=== PATIENT | female | born 1950 | race Asian ===

== ENCOUNTER 2019-12-31 11:46 | Observation (INO) | payer MEDICARE, BC ==
[~2019-12-31] VITALS: Ht 162.6 cm; Wt 60.7 kg
[~2019-12-31 11:46] MED LIST: ASCO500C2 PO; ATOR40TA PO; B CO1TAB14 PO; BIOTIN PO; CYAN100T22 PO; DIGO250T3 PO; MELA1TAB8 PO; METO25TA91 PO; MULT-155 PO; MULT-717 PO; WARF2.5T32 PO; [UNRECOGNIZED DRUG - OTHER] PO
[2019-12-31] MEDS ORDERED: SODIUM CHLORIDE 0.9% 1,000 ML IV SCH (13:00)
[2019-12-31 13:18] VITALS: BP 117/77
[2019-12-31] MEDS ORDERED: CALCIO DEL MAR PO (13:29)
[2019-12-31] MEDS ORDERED: MULT-717 PO (13:29)
[2019-12-31] MEDS ORDERED: LACT1CAP20 PO (13:29)
[2019-12-31] MEDS ORDERED: OMEP-110 PO (13:29)
[2019-12-31] MEDS ORDERED: PLEASE ENTER HEIGHT AND WEIGHT MC SCH (13:30)
[2019-12-31] MEDS ORDERED: Spironolactone PO (13:34)
[2019-12-31] MEDS ORDERED: ACET325T26 PO (13:38)
[2019-12-31 13:57] LABS: INTERNATIONAL NORMALIZED RATIO 3.06 (0.93-1.1); PROTHROMBIN TIME 31.9 Seconds (9.6-11.5)
[2019-12-31 14:00] LABS: ANION GAP 7 mmol/L (5-15); CALCIUM 9.7 mg/dL (8.5-10.1); CHLORIDE 108 mmol/L (98-107)
[2019-12-31 14:02] LABS: CREATININE 1.21 mg/dL (0.55-1.02)
[2019-12-31 14:19] LABS: MD NO
[2019-12-31 14:22] LABS: BASOPHILS # (AUTO) 0.09 x10^3/uL (0-0.1); BASOPHILS % (AUTO) 1 % (0-1); EOSINOPHILS # (AUTO) 0.03 x10^3/uL (0-0.4); EOSINOPHILS % (AUTO) 0 % (1-7); LYMPHOCYTES # (AUTO) 0.85 x10^3/uL (1-3.4); LYMPHOCYTES % (AUTO) 14 % (22-44); MEAN CORPUSCULAR HEMOGLOBIN 30.3 pg (27.0-34.8); MEAN CORPUSCULAR HGB CONC 32.2 g/dL (32.4-35.8); MEAN CORPUSCULAR VOLUME 94.2 fL (80-100); MEAN PLATELET VOLUME 11.9 fL (7.4-10.4); MONOCYTES # (AUTO) 0.38 x10^3/uL (0.2-0.8); MONOCYTES % (AUTO) 6 % (2-9); NEUTROPHILS # (AUTO) 4.61 x10^3/uL (1.8-6.8); NEUTROPHILS % (AUTO) 77 % (42-75); PLATELET COUNT 127 x10^3/uL (130-400); RED CELL DISTRIBUTION WIDTH 16.9 % (9.6-15.2)
[2019-12-31] MEDS ORDERED: LIDOCAINE 1%, 20ML ONE (14:26)
[2019-12-31] MEDS ORDERED: FENTANYL PF 100 MCG/2ML ONE (14:30)
[2019-12-31] MEDS ORDERED: MIDAZOLAM 1 MG/ML, 2ML ONE (14:30)
[2019-12-31] MEDS ORDERED: ACETAMINOPHEN 325 MG TABLET PO PRN (15:30)
[2019-12-31 19:43] VITALS: BP 119/80
[2020-01-01 00:03] VITALS: BP 134/79
[2020-01-01 07:27] VITALS: BP 123/86
[2020-01-01] MEDS ORDERED: WARFARIN 2.5 MG TABLET PO-COUM SCH (09:00)
[2020-01-01] MEDS ORDERED: OMEPRAZOLE 10 MG CAPSULE.DR PO SCH (09:00)
[2020-01-01 10:25] LABS: INTERNATIONAL NORMALIZED RATIO 3.31 (0.93-1.1); PROTHROMBIN TIME 34.5 Seconds (9.6-11.5)
== END 2020-01-01 11:30 | disposition home or self-care (01) ==
LOC: CACL 11:46 → 5SO 15:13 → CACL 17:00 → DCLOUNGE 01-01 11:23
PROVIDERS: ADMIT Internal Medicine Cardiovascular Disease; ATTEND Internal Medicine Cardiovascular Disease
DX: I48.20 Chronic atrial fibrillation, unspecified (principal); I44.2 Atrioventricular block, complete; E78.5 Hyperlipidemia, unspecified; Z87.891 Personal history of nicotine dependence; E78.00 Pure hypercholesterolemia, unspecified; Z95.0 Presence of cardiac pacemaker; Z95.2 Presence of prosthetic heart valve; Z79.899 Other long term (current) drug therapy; Z79.01 Long term (current) use of anticoagulants
CPT/HCPCS: 36415; 80048; 85025; 85610; 85730; 93650; 99156; 99157; C1766; C1894; C2630; G0378; J2250; J3010; J3490

== ENCOUNTER → 2020-01-21 | Outpatient (CLI) | payer MEDICARE, BC ==
[~2020-01-21] MED LIST changes: +ACET325T26 PO; +CALCIO DEL MAR PO; +FURO20TA3 PO; +LACT1CAP20 PO; +OMEP-110 PO; +POTA10TA6 PO; +Spironolactone PO
== END | disposition home or self-care (01) ==
LOC: STAR 09:05
PROVIDERS: ATTEND Anesthesiology
DX: Z01.812 Encounter for preprocedural laboratory examination (principal); Z20.828 Contact with and (suspected) exposure to other viral communicable diseases
CPT/HCPCS: 36415; 87635

== ENCOUNTER 2020-01-26 09:33 | Day surgery (SDC) | payer MEDICARE, BC ==
[~2020-01-26] VITALS: Ht 162.6 cm; Wt 56.8 kg
[~2020-01-26 09:33] MED LIST changes: -FURO20TA3 PO; -POTA10TA6 PO
[2020-01-26 10:27] VITALS: BP 105/73
[2020-01-26] MEDS ORDERED: SODIUM CHLORIDE 0.9% 1,000 ML IV SCH (10:30)
[2020-01-26] MEDS ORDERED: PLEASE ENTER HEIGHT AND WEIGHT MC SCH (10:30)
[2020-01-26] MEDS ORDERED: POTA10TA6 PO (10:35)
[2020-01-26] MEDS ORDERED: FURO20TA3 PO (10:35)
[2020-01-26] MEDS ORDERED: PROPOFOL 10 MG/ML, 20ML ONE (12:00)
== END 2020-01-26 13:45 | disposition home or self-care (01) ==
LOC: CACL 09:33
PROVIDERS: ATTEND Internal Medicine Cardiovascular Disease
DX: I05.2 Rheumatic mitral stenosis with insufficiency (principal); I48.91 Unspecified atrial fibrillation; I11.0 Hypertensive heart disease with heart failure; I50.33 Acute on chronic diastolic (congestive) heart failure; I07.1 Rheumatic tricuspid insufficiency; E78.00 Pure hypercholesterolemia, unspecified; I95.0 Idiopathic hypotension; Z88.3 Allergy status to other anti-infective agents; Z91.040 Latex allergy status; Z79.899 Other long term (current) drug therapy; Z91.048 Other nonmedicinal substance allergy status; Z72.89 Other problems related to lifestyle; Z87.891 Personal history of nicotine dependence; Z98.890 Other specified postprocedural states
CPT/HCPCS: 93312; 93325; J2704